=== PATIENT | female | born 1990 ===

== ENCOUNTER 2023-07-27 11:48 | Emergency (ER) | payer SELFPAY ==
[2023-07-27 12:25] LABS: BASOPHILS PERCENT AUTO 0.3 % (0.0-1.0); EOSINOPHILS PERCENT AUTO 0.5 % (1.0-3.0); HEMATOCRIT 36.4 % (37.0-47.0); HEMOGLOBIN 11.8 g/dL (12.0-16.0); LYMPHOCYTES PERCENT AUTO 30.4 % (20.5-50.1); MEAN CORPUSCULAR HEMOGLOBIN 28.8 pg (27.0-34.0); MEAN CORPUSCULAR HGB CONC 32.4 g/dL (33.0-35.0); MEAN CORPUSCULAR VOLUME 88.8 fL (80-100); MONOCYTES PERCENT AUTO 6.6 % (2-8); NEUTROPHILS PERCENT AUTO 62.2 % (42.2-75.2); PLATELET COUNT,PLT 314 10^3/uL (150-450); WHITE BLOOD CELL COUNT,WBC 7.4 10^3/uL (5.0-10.0)
[2023-07-27 12:43] LABS: HCG QUALITATIVE,SERUM NEGATIVE (NEGATIVE)
[2023-07-27 12:46] LABS: A/G RATIO 1.2; ALANINE AMINOTRANSFERASE,ALT 32 U/L (14-59); ALBUMIN 3.9 g/dL (3.4-5.0); ALKALINE PHOSPHATASE 72 U/L (46-116); ANION GAP 7.7 mEq/L (7-13); ASPARTATE AMNIOTRANSFERASE,AST 22 U/L (15-37); BILIRUBIN TOTAL 0.7 mg/dL (0.2-1.0); BLOOD UREA NITROGEN,BUN 10 mg/dL (7-18); BUN/CREATININE RATIO 14.9 (No establ ref range); CALCIUM 8.9 mg/dL (8.5-10.1); CARBON DIOXIDE,CO2 30 mmol/L (21-32); CHLORIDE,CL 103 mmol/L (98-107); CREATININE 0.67 mg/dL (0.55-1.02); EST CRCL DRUG DOSING (CG) 113.89 mL/min; GLUCOSE RANDOM 91 mg/dL (70-99); POTASSIUM,K 3.7 mmol/L (3.5-5.1); PROTEIN TOTAL,TP 7.2 g/dL (6.4-8.2); SODIUM,NA 137 mmol/L (136-145)
[2023-07-27 12:47] LABS: ESTIMATED GFR 120 mL/min (>=60)
[2023-07-27 12:52] LABS: PROTHROMBIN TIME 10.4 SEC (9.0-12.0)
== END 2023-07-27 13:18 | disposition home or self-care (01) ==
LOC: DL.ED 11:48
DX: S33.100A Subluxation of unspecified lumbar vertebra, initial encounter (principal); X58.XXXA Exposure to other specified factors, initial encounter
CPT/HCPCS: 36415; 80053; 84703; 85025; 85379; 85610; 99283